=== PATIENT | female | born 1995 | race Caucasian/White ===

== ENCOUNTER 2018-08-03 13:33 | Outpatient (REF) | payer OTHER, SELFPAY ==
--- NOTE | 2018-08-03 13:00 | PAPFT_PTH ---
PATIENT: Chintan Ramirez LOC: [facility] U#:[id number] AGE/SX: 23/F ROOM: RE08/03/[address]: CATARINA Schneider : 1995 BED: DIS: 08/03/2018 SPEC #: [id number] RECD: 08/03/18 18:24 STATUS: ANITA REQ #: [id number] JESUS: 08/03/18 13:[address]: Nancy Macdonald DEPT: [facility] Cytology RECD BY: Alexus Jauregui ENTERED: 08/03/18 18:24 SP TYPE: PAPFT CAROLYN DR: Sandra Philip MD Tissues: 1 - CX/ENDOCX FOR PAP SMEARS Procedures: PAP THIN PREP/UVM Screening Comments: [id number]
== END 2018-08-03 13:53 ==
LOC: LBN 13:33
PROVIDERS: PCP Pediatrics; Visit Provider Nurse Practitioner Family
DX: Z12.4 Encounter for screening for malignant neoplasm of cervix (principal)
CPT/HCPCS: 88142

== ENCOUNTER 2019-02-15 11:18 | Outpatient (CLI) | payer OTHER, SELFPAY ==
--- NOTE | 2019-02-15 15:00 | DI.US_ITS ---
SYMPTOMS/DIAGNOSIS: RIGHT LOWER ABDOMINAL PAIN, INTENSE RIGHT-SIDED PELVIC PAIN X 5 DAYS, PAIN WITH COUGHING, ? OVARIAN CYST PELVIC ULTRASOUND: A transabdominal and transvaginal examination was carried out. The uterus measures 6.4 cm in length, 2.8 cm in height and 3.7 cm in width with an endometrial stripe thickness of 4.6 mm. The right ovary measures 3.9 x 3.3 x 4 cm and contains a complex cyst measuring 3.4 x 2.9 x 3.8 cm. There is surrounding free fluid. The left ovary measures 3.2 x 1.7 x 2.4 cm and contains a collapsing cyst measuring 1.8 x 1 x 1.2 cm. Note is made of a small quantity of cul-de-sac fluid. SUMMARY: Right paraovarian free fluid and a small quantity of free fluid in the cul-de-sac is identified. There is a 3.4 x 2.9 x 3.8 cm left ovarian mass, which would certainly be consistent with a hemorrhagic cyst. A follow-up ultrasound examination in six to eight weeks is suggested for further review.
== END 2019-02-15 11:38 ==
PROVIDERS: PCP Pediatrics; Visit Provider Nurse Practitioner Family
DX: R10.31 Right lower quadrant pain (principal); R10.2 Pelvic and perineal pain; N83.291 Other ovarian cyst, right side; N83.292 Other ovarian cyst, left side
CPT/HCPCS: 76830; 76856

== ENCOUNTER 2019-02-27 15:43 | Outpatient (CLI) | payer OTHER, SELFPAY ==
[2019-02-27 19:20] LABS: HCG Quant, Pregnancy 235 mIU/mL (1-3)
== END 2019-02-27 16:03 ==
PROVIDERS: PCP Pediatrics; Visit Provider Obstetrics & Gynecology
DX: Z34.91 Encounter for supervision of normal pregnancy, unspecified, first trimester (principal)
CPT/HCPCS: 36415; 84702

== ENCOUNTER 2019-03-01 12:03 | Outpatient (CLI) | payer OTHER, SELFPAY ==
[2019-03-01 21:24] LABS: HCG Quant, Pregnancy 495 mIU/mL (1-3)
== END 2019-03-01 12:23 ==
PROVIDERS: PCP Pediatrics; Visit Provider Obstetrics & Gynecology
DX: Z34.91 Encounter for supervision of normal pregnancy, unspecified, first trimester (principal)
CPT/HCPCS: 36415; 84702

== ENCOUNTER 2019-04-04 15:12 | Outpatient (CLI) | payer OTHER, SELFPAY ==
[2019-04-04 15:49] LABS: Abs Immature Grans 0.02 k/cumm (0.0-0.09); Absolute Eosinophil Count 0.06 k/cumm (0.0-0.7); Absolute Lymphocyte Count 2.11 k/cumm (1.2-3.4); Absolute Monocyte Count 0.84 k/cumm (0.11-0.7); Basophils % 0.3; Eosinophils % 0.5; HCT 38.1 % (36.0-46.0); Immature Grans % 0.2; Lymphocytes % 17.7; Mean Corp. HGB Concentration 34.1 g/dL (32.0-36.0); Mean Corpuscular Hemoglobin 30.9 pg (27.0-33.0); Mean Corpuscular Volume 90.5 fL (80-95); Neutrophils % 74.3; Platelet Count 225 x1000/uL (130-400); RBC 4.21 m/cumm (4.00-5.20); RBC Distribution Width 12.1 % (11.7-14.6); White Blood Cell Count 11.93 k/cumm (4.4-10.8)
[2019-04-04 15:59] LABS: Absolute Basophil Count 0.04 k/cumm (0.0-0.2); Absolute Neutrophil Count 8.86 k/cumm (1.2-6.7)
[2019-04-04 16:25] LABS: TSH (W/Ref FT4) 1.47 uIU/mL (0.36-3.74)
[2019-04-05 11:04] LABS: Hepatitis B Surface Ag Negative (NEGAT); Hepatitis C Ab w Rflx HCV PCR Negative (NEGAT)
[2019-04-05 11:10] LABS: Rubella IgG Ab (UVM) Positive; Syphilis Serology (RPR) Negative (Negative); Varicella IgG Antibody Positive
[2019-04-05 11:17] LABS: HIV-1/2 Ag & Ab Screen Negative (NEGAT)
== END 2019-04-04 15:32 ==
PROVIDERS: PCP Pediatrics; Visit Provider Advanced Practice Midwife
DX: Z34.91 Encounter for supervision of normal pregnancy, unspecified, first trimester (principal); Z11.59 Encounter for screening for other viral diseases; Z11.4 Encounter for screening for human immunodeficiency virus [HIV]; Z01.84 Encounter for antibody response examination
CPT/HCPCS: 36415; 80055; 86787; 86803; 86850; 86900; 86901; 87340; 87389; 84443; 86592; 86762

== ENCOUNTER 2019-04-04 15:21 | Outpatient (REF) | payer OTHER, SELFPAY ==
--- NOTE | 2019-04-04 14:50 | PAPFT_PTH ---
PATIENT: Chintan Ramirez LOC: [facility] U#:[id number] AGE/SX: 24/F ROOM: RE04/04/[address]: Marilee Villagran RN : 1995 BED: DIS: 04/04/2019 SPEC #: [id number] RECD: 04/04/19 17:32 STATUS: ANITA REKillian #: [id number] JESUS: 04/04/19 14:[address]: Marilee Villagran DEPT: [facility] Cytology RECD BY: Alexus Jauregui ENTERED: 04/04/19 17:32 SP TYPE: PAPFT OT DR: Sandra Philip MD Tissues: 1 - CX/ENDOCX FOR PAP SMEARS Procedures: PAP THIN PREP/UVM Screening Comments: [id number]
[2019-04-04 16:23] LABS: *AMPHETAMINES SCREEN URINE Negative (Negative); *BARBITURATES SCREEN URINE Negative (Negative); *BENZODIAZEPINES SCREEN URINE Negative (Negative); Cannabinoids THC POSITIVE (Negative); Cocaine Screen,Urine Negative (Negative); METHADONE URINE SCREEN Negative (Negative); OPIATES URINE SCREEN Negative (Negative)
[2019-04-04 16:30] LABS: Tricyclic Antidepressants Negative (Negative)
[2019-04-05 13:46] LABS: Chlamydia Result Negative; GC Result Negative; Specimen Description CERVIX
[2019-04-13 06:51] LABS: Buprenorphine Negative; Norbuprenorphine Negative
== END 2019-04-04 15:41 ==
LOC: LBN 15:21
PROVIDERS: PCP Pediatrics; Visit Provider Advanced Practice Midwife
DX: Z34.91 Encounter for supervision of normal pregnancy, unspecified, first trimester (principal); Z11.3 Encounter for screening for infections with a predominantly sexual mode of transmission; Z12.4 Encounter for screening for malignant neoplasm of cervix
CPT/HCPCS: 80307; 87491; 87591; 88142; 87086

== ENCOUNTER 2019-04-07 08:39 | Emergency (ER) | payer OTHER, SELFPAY ==
[2019-04-07 08:41] VITALS: BP 125/72; PULSE 88; RESP 16; TEMP 37; O2SAT 100
== END 2019-04-07 10:01 ==
PROVIDERS: PCP Pediatrics
DX: Z53.21 Procedure and treatment not carried out due to patient leaving prior to being seen by health care provider (principal)
CPT/HCPCS: 87880

== ENCOUNTER 2019-04-24 20:22 | Emergency (ER) | payer OTHER, SELFPAY ==
--- NOTE | 2019-04-24 20:28 | W.ED.GENAD ---
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 She describes it as a stabbing burning sensation. Worse when she lays backwards. Worse when she eats spicy foods. She notably had spicy buffalo chicken nachos yesterday and today this is seem to significantly worsen her symptoms. She does admit to a history of reflux and states that this does feel similar. Exam demonstrates minimal epigastric tenderness, and a small gallstone on bedside ultrasound. Limited portable bedside ultrasound does demonstrate evidence of gallbladder wall thickness less than 3 mm. No overt distention. Negative sonographic physical exam Ortega sign. Signs and symptoms are most concerning for reflux secondary to notable spicy foods. I did discuss with the patient CT imaging, labs, and GI cocktail and at this time through shared decision making process understanding the risks and benefits of limiting the work-up the patient would like to hold off on labs and imaging and just start with the GI cocktail. I do feel that this is reasonable given her current physical exam. HPI General Date/Time Provider Initiated Documentation: 04/24/19 20:25. HPI Narrative: This is a 24-year-old female with a past medical history of asthma who presents today for evaluation of epigastric pain. She states that she has a history of epigastric pain, usually associated with spicy foods. She is gotten it much over the past, however over the last 4 hours it is been notably worse. She states it comes and goes and is stabbing in nature. It radiates from the epigastric region up the sternum. Significantly worsened with laying down on her back. She denies any pleuritic pain, she denies any vomiting or significant diarrhea patient does take control and does have a Nexplanon device. Denies PE risk factors such as recent long car rides, immobilization, recent surgery, prior history of DVT or PE, family history of PE or DVT, morbid obesity, and smoking, hemoptysis, history of cancer. Patient denies any other complaints at this time. No other modifying factors. Related Data Home Medications Medication Instructions Recorded Confirmed fluticasone propionate [Flonase 1 spray NS BID #1 script 10/13/17 04/24/19 Allergy Relief] levalbuterol tartrate 45 2 puff INHALATION Q4H PRN #1 puff 08/11/18 04/24/19 mcg/actuation aerosol inhaler vitamin no.138-folic acid 1 tab PO DAILY 03/22/19 04/24/19 400 mcg-dha 25 mg chewable tablet Previous Rx's Medication Instructions Recorded fluticasone propionate [Flonase 1 spray NS BID #1 script 10/13/17 Allergy Relief] levalbuterol tartrate 45 2 puff INHALATION Q4H PRN #1 puff 08/11/18 mcg/actuation aerosol inhaler Allergies Allergy/AdvReac Type Severity Reaction Status Date / Time No Known Allergies Allergy Verified 04/04/19 13:42 General MADALNY: 4 Review of Systems Review of Systems All systems reviewed & are unremarkable except as noted in HPI and below PFSH Medical History Acne (Acute 05/31/12) ADHD (attention deficit hyperactivity disorder) (Resolved) Arthralgia (Resolved) Asthma, exercise induced (Acute 05/31/12) Contraception (Acute) Depressive disorder (Resolved) Eczema (Acute 07/19/14) Migraine with aura (Chronic 05/31/12) Positive GUY (antinuclear antibody) (Acute 02/24/16) Surgical History release of bowel obstructing celiac artery Family History Mother Lupus Social History Smoking/Tobacco Use Status: Former Tobacco Use Quit Date: 02/27/19 Alcohol Intake: former Details: d/c'd w/ knowledge of . Drug use: Current Sobriety Substance use type: marijuana Details: mj qd one hit q day. Seatbelt use: always Do you feel safe at home: Yes Do you feel safe in your relationship?: Yes Female Reproductive History Menstrual control method: progesterone injection History History 1 Para 0 Hx # Term Pregnancies 0 Multiple births 0 Hx # Pregnancies 0 Ectopic pregnancies 0 AB induced 0 Hx Number of Living Children 0 AB spontaneous 0 Exam Narrative Exam Narrative: 1.Const: Well-nourished, Well-developed, appearing stated age 2.Eyes: PERRL, no conjunctival injection, and symmetrical lids. 3.ENT: Atraumatic external nose and ears. Moist MM. Neck: Symmetric, trachea midline, No thyromegaly. 4.CVS: +S1/S2, No murmurs or gallops. Peripheral pulses 2+ and equal in all extremities. Brisk capillary refill in all extremities. 5.RESP: Unlabored respiratory effort. Clear to auscultation bilaterally. No wheezes rales or rhonchi 6.GI: Soft, Nontender/Nondistended, No hepatosplenomegaly. No guarding or rebound. Minimal epigastric discomfort. No pain at McBurney's point, negative Ortega sign and negative sonographic Ortega sign. Bedside limited ultrasound demonstrates gallbladder wall of 2.8 mm in diameter. Gallbladder is not overly distended. One small stone is present. No flank or CVA tenderness. No suprapubic tenderness. 7.MSK: Normocephalic/Atraumatic, Extremities w/o deformity or ttp No cyanosis or clubbing, Normal movement of all extremities 8.Skin: Warm, Dry. No rashes or lesions. 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 Sensation grossly intact, no focal neurologic deficits. 10.Psych: (AAO) x3. Appropriate mood and affect
[2019-04-24 20:30] VITALS: BP 125/73; PULSE 76; RESP 18; TEMP 36.8; O2SAT 99
--- NOTE | 2019-04-24 20:53 | ED.GENADUL_ITS ---
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 No heavy lifting and no sexual activity until cleared by obstetrics. Please follow-up with obstetrics. Call to arrange timely follow-up. Return to the ER for any worsening or new concerning symptoms. Referrals: Emily Rojas [[facility] NURSE BIRD SITTER] - Medical Decision Making 24-year-old female G1, P0 at 12 weeks here with vaginal bleeding that started tonight. Abdominal exam benign. Patient is not tachycardic, normotensive, hemodynamic with stable. Blood type as of 04/04/2019 is O+. 21:00 --I called and spoke with agile developer Emily at the request of patient who will come in immediately to perform speculum exam. Patient being moved to DEAD MAIL CHECKER exam capable bed in room. 21:34 --pelvic exam performed by agile developer, no bleeding, also closed, no products of conception. A bedside [id number] ultrasound was performed by [place] and shows a IUP with movement and heart rate. heart rate per nursing was 152-164. I spoke with the agile developerEmily, who recommends discharge with outpatient follow- up. She will order outpatient official ultrasound to be performed in follow-up. Results and plan discussed with the patient. Usual customary discharge instructions were provided. HPI General Mode of arrival: ambulatory . Date/Time Provider Initiated Documentation: 04/24/19 20:25 . Limitations to Documentation: no limitations . Information obtained by: patient and family . HPI Narrative: 24-year-old G1, P0 at 12 weeks here with vaginal bleeding. Bleeding started at 745 tonight. Bleeding is been heavy. She has used 2 pads. No associated abdominal cramping. Today's been normal with normal ultrasound done at 7 weeks. She does feel that she is still bleeding now. 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 MADALYN: 3 Review of Systems Review of Systems All systems reviewed & are unremarkable except as noted in HPI and below Constitutional Denies fever(s) and Denies weakness Gastrointestinal Denies abdominal pain and Denies cramping Genitourinary Reports as per HPI Neurologic Denies weakness PFSH Medical History Acne (Acute 05/31/12) ADHD (attention deficit hyperactivity disorder) (Resolved) Arthralgia (Resolved) Asthma, exercise induced (Acute 05/31/12) Contraception (Acute) Depressive disorder (Resolved) Eczema (Acute 07/19/14) Migraine with aura (Chronic 05/31/12) Positive GUY (antinuclear antibody) (Acute 02/24/16) Surgical History release of bowel obstructing celiac artery Family History Mother Lupus Social History Smoking/Tobacco Use Status: Former Tobacco Use Quit Date: 02/27/19 Alcohol Intake: former Details: d/c'd w/ knowledge of . Drug use: Current Sobriety Substance use type: marijuana Details: mj qd one hit q day. Seatbelt use: always Do you feel safe at home: Yes Do you feel safe in your relationship?: Yes Female Reproductive History Menstrual control method: progesterone injection History History 1 Para 0 Hx # Term Pregnancies 0 Multiple births 0 Hx # Pregnancies 0 Ectopic pregnancies 0 AB induced 0 Hx Number of Living Children 0 AB spontaneous 0 Exam Const General: cooperative and no acute distress HENMT Head: normocephalic Mouth: moist mucous membranes Eyes Conjunctivae: normal conjunctivae Sclera: normal sclerae Neck Neck: trachea midline and supple Resp Auscultation: clear to auscultation bilaterally, no rales, no rhonchi and no wheezes Cardio Jugular venous pressure: no JVD Rate: regular rate and not tachycardic Rhythm: regular rhythm GI Palpation: soft, not firm, no guarding, no masses, not rigid and nontender Skin General skin exam: no rashes or lesions noted Neuro General: alert, awake, oriented x3 and tone normal Extrem General: no edema Psych Appearance: grossly normal Mental Status: mental status grossly normal Course Vital Signs Temperature 36.8 C 04/24/19 20:30 Pulse 76 04/24/19 20:30 Respiratory Rate 18 04/24/19 20:30 Blood Pressure 125/73 04/24/19 20:30 Pulse Oximetry 99 04/24/19 20:30 Temperature 36.8 C 04/24/19 20:30 Temperature Source Tympanic 04/24/19 20:30 Pulse 76 04/24/19 20:30 Respiratory Rate 18 04/24/19 20:30 Respiratory Effort Non-Labored 04/24/19 20:39 Blood Pressure 125/73 04/24/19 20:30 Pulse Oximetry 99 04/24/19 20:30 Oxygen Delivery Method Room Air 04/24/19 20:30 Oxygen Flow Rate 0 04/24/19 20:30 Pain Level 0 04/24/19 20:39
[2019-04-24 21:43] VITALS: BP 125/73; PULSE 76; RESP 18; O2SAT 99
== END 2019-04-24 21:43 | disposition home or self-care (01) ==
PROVIDERS: Emergency Provider Student in an Organized Health Care Education/Training Program; PCP Pediatrics
DX: O20.0 Threatened abortion (principal); Z3A.12 12 weeks gestation of pregnancy
CPT/HCPCS: 99284

== ENCOUNTER 2019-04-25 12:22 | Outpatient (CLI) | payer OTHER, SELFPAY ==
--- NOTE | 2019-04-25 12:15 | DI.US_ITS ---
SYMPTOMS/DIAGNOSIS: PLACENTAL LOCATION, ? PREVIA, O20.9, HEMORRHAGE IN EARLY , Z3A.12, 12-WEEK GESTATION OB ULTRASOUND: Many abnormalities cannot be diagnosed. A normal exam does not exclude a congenital anomaly. HISTORY: hCG 495 on 03/01/19, heaving bleeding last night has since subsided Date of exam: 04/25/19 LMP: EDC by LMP: 11/03/2019 Previous study: 12+4 wks Range: 11+4 to 13+4 EDC by prior us: 11/03/2019 Findings: Prior surgery/: None BIOMETRY: PELVIC MEASUREMENTS: CRL: mm wks Uterus: 9.4 x 8.0 x 9.2 cm Yolk sac: mm wks Gest sac: mm wks Rt Ovary: 2.7 x 2.1 x 2.0 cm BPD: 21 mm 13+2 wks HC: 80 mm 13+3 wks Lt Ovary: 2.6 x 1.2 x 2.0 cm AC: 64 mm 13+1 wks FL: 9.4 mm 12+6 wks Comments: Placenta tip = 2.4-2.9 cm from cx Anterior placenta ? Complex cyst of right ovary measuring 1.2 x 0.9 x 1.6 cm Composite Age (US): 13+1 wks EDC by US: 10/30/2019 Heart Rate: 162 BPM Amniotic Fluid: Normal Movement noted: X Yes No Comments: OB ultrasound was performed utilizing first trimester protocol. biometry is consistent with gestational age of 13 weeks 1 day and EDC of 10/30/2019. There is a single viable intrauterine gestation with heart rate 162 bpm. Trophoblastic tissue is unremarkable. Presumed right ovarian corpus luteum cyst noted measuring about 12 mm in diameter.
[2019-04-25 13:14] LABS: HCT 37.7 % (36.0-46.0); HGB 12.6 g/dL (12.0-15.5); Mean Corp. HGB Concentration 33.4 g/dL (32.0-36.0); Mean Corpuscular Hemoglobin 30.9 pg (27.0-33.0); Mean Corpuscular Volume 92.4 fL (80-95); Mean Platelet Volume 10.9 fL (8.0-11.0); Platelet Count 248 x1000/uL (130-400); RBC 4.08 m/cumm (4.00-5.20); RBC Distribution Width 12.2 % (11.7-14.6)
== END 2019-04-25 12:42 ==
PROVIDERS: PCP Pediatrics; Visit Provider Advanced Practice Midwife
DX: O20.9 Hemorrhage in early pregnancy, unspecified (principal); Z3A.13 13 weeks gestation of pregnancy; N83.11 Corpus luteum cyst of right ovary
CPT/HCPCS: 36415; 85027; 76801

== ENCOUNTER 2019-05-30 01:07 | Outpatient (CLI) | payer OTHER, SELFPAY ==
--- NOTE | 2019-05-30 15:26 | DI.US_ITS ---
EXAM: US OB 2-3 TRIMESTER CLINICAL HISTORY: routine pnc Z34.90. TECHNIQUE: Ultrasound performed using standard protocol. COMPARISON: No exams were available for comparison FINDINGS: Please see the obstetrical ultrasound worksheet for the complete results of this examination.
== END 2019-05-30 01:27 ==
PROVIDERS: PCP Pediatrics; Visit Provider Advanced Practice Midwife
DX: Z34.92 Encounter for supervision of normal pregnancy, unspecified, second trimester (principal)
CPT/HCPCS: 76805

== ENCOUNTER 2019-05-31 17:16 | Outpatient (REF) | payer OTHER, SELFPAY | END 2019-05-31 17:36 | LOC: LBN 17:16 | PROVIDERS: PCP Pediatrics; Visit Provider Advanced Practice Midwife | DX: R10.9 Unspecified abdominal pain (principal) | CPT/HCPCS: 87086 ==

== ENCOUNTER 2019-06-28 16:20 | Outpatient (CLI) | payer OTHER, SELFPAY ==
[2019-07-02 14:16] LABS: AFP 69.5 ng/mL; Calculated age at EDD 24 years; Cigarette smoking status non-smoker; GA used in risk estimate Scan estimate; INHIBIN 270 pg/mL; IVF Pregnancy No; Initial or repeat testing Initial testing; Insulin dependent diabetes No; Maternal Weight 146 lbs; Number of Fetuses 1; Physician Phone Number 802-748-7300; Prev Down(T21)/Trisomy Pregnan No; Prev Pregnancy w/NTD No; RECOMMENDED FOLLOW UP None.; Results Summary Normal risk; hCG, TOTAL 35.2 IU/mL; hCG, TOTAL MoM 1.81 MoM; uE3 2.03 ng/mL; uE3 MoM 0.83 MoM
== END 2019-06-28 16:40 ==
PROVIDERS: PCP Pediatrics; Visit Provider Advanced Practice Midwife
DX: Z34.92 Encounter for supervision of normal pregnancy, unspecified, second trimester (principal); Z36.89 Encounter for other specified antenatal screening
CPT/HCPCS: 36415; 81511

== ENCOUNTER 2019-08-15 07:03 | Outpatient (CLI) | payer OTHER, SELFPAY ==
[2019-08-15 08:21] LABS: HCT 35.6 % (36.0-46.0); HGB 11.6 g/dL (12.0-15.5); Mean Corp. HGB Concentration 32.6 g/dL (32.0-36.0); Mean Corpuscular Hemoglobin 30.1 pg (27.0-33.0); Mean Corpuscular Volume 92.2 fL (80-95); Mean Platelet Volume 10.4 fL (8.0-11.0); Platelet Count 231 x1000/uL (130-400); RBC 3.86 m/cumm (4.00-5.20); RBC Distribution Width 11.7 % (11.7-14.6); White Blood Cell Count 8.14 k/cumm (4.4-10.8)
[2019-08-15 08:32] LABS: Glucose,1 Hr (Glucola) 103 mg/dL (80-140)
== END 2019-08-15 07:23 ==
PROVIDERS: PCP Pediatrics; Visit Provider Advanced Practice Midwife
DX: Z34.93 Encounter for supervision of normal pregnancy, unspecified, third trimester (principal)
CPT/HCPCS: 36415; 82950; 85027

== ENCOUNTER 2019-10-10 10:20 | Outpatient (REF) | payer OTHER, SELFPAY | END 2019-10-10 10:40 | LOC: LBN 10:20 | PROVIDERS: PCP Pediatrics; Visit Provider Advanced Practice Midwife | DX: Z34.93 Encounter for supervision of normal pregnancy, unspecified, third trimester (principal); Z36.85 Encounter for antenatal screening for Streptococcus B | CPT/HCPCS: 87081 ==

== ENCOUNTER 2019-10-10 16:35 | Outpatient (CLI) | payer OTHER, SELFPAY ==
[2019-10-10 16:59] LABS: HCT 35.2 % (36.0-46.0); HGB 11.4 g/dL (12.0-15.5); Mean Corp. HGB Concentration 32.4 g/dL (32.0-36.0); Mean Corpuscular Hemoglobin 29.2 pg (27.0-33.0); Mean Platelet Volume 10.9 fL (8.0-11.0); Platelet Count 273 x1000/uL (130-400); RBC 3.91 m/cumm (4.00-5.20); RBC Distribution Width 12.4 % (11.7-14.6); White Blood Cell Count 10.66 k/cumm (4.4-10.8)
== END 2019-10-10 16:55 ==
PROVIDERS: PCP Pediatrics; Visit Provider Advanced Practice Midwife
DX: Z34.93 Encounter for supervision of normal pregnancy, unspecified, third trimester (principal)
CPT/HCPCS: 36415; 85027; 85025

== ENCOUNTER 2019-10-10 21:20 | Outpatient (REF) | payer OTHER, SELFPAY ==
[2019-10-10 23:11] LABS: *AMPHETAMINES SCREEN URINE Negative (Negative); *BARBITURATES SCREEN URINE Negative (Negative); *BENZODIAZEPINES SCREEN URINE Negative (Negative); Cannabinoids THC Negative (Negative); Cocaine Screen,Urine Negative (Negative); METHADONE URINE SCREEN Negative (Negative); OPIATES URINE SCREEN Negative (Negative)
[2019-10-10 23:13] LABS: Tricyclic Antidepressants Negative (Negative)
[2019-10-18 10:09] LABS: Buprenorphine Negative; Norbuprenorphine Negative
== END 2019-10-10 21:40 ==
LOC: LBN 21:20
PROVIDERS: PCP Pediatrics; Visit Provider Advanced Practice Midwife
DX: Z34.93 Encounter for supervision of normal pregnancy, unspecified, third trimester (principal)
CPT/HCPCS: 80307

== ENCOUNTER 2019-10-17 19:24 | Outpatient (REF) | payer OTHER, SELFPAY | END 2019-10-17 19:44 | LOC: LBN 19:24 | PROVIDERS: PCP Advanced Practice Midwife; Visit Provider Advanced Practice Midwife | DX: N89.8 Other specified noninflammatory disorders of vagina (principal) | CPT/HCPCS: 87480; 87510; 87660 ==

== ENCOUNTER 2019-11-03 11:30 | Observation (INO) | payer OTHER, SELFPAY | END 2019-11-03 13:37 | disposition home or self-care (01) | PROVIDERS: Admitting Provider Advanced Practice Midwife; PCP Advanced Practice Midwife; Visit Provider Advanced Practice Midwife | DX: O47.1 False labor at or after 37 completed weeks of gestation (principal); Z3A.39 39 weeks gestation of pregnancy | CPT/HCPCS: 59025; G0378 ==

== ENCOUNTER 2019-11-06 18:35 | Inpatient (IN) | payer OTHER, MEDICAID, SELFPAY ==
[2019-11-06] MEDS: Lidocaine 1% Multi-Dose 20 ML VIAL (19:40)
[2019-11-06] MEDS: Oxytocin 10 UNITS/ML VIAL IM (19:50)
[2019-11-06] MEDS: Ibuprofen 600 MG TAB PO (21:14)
[2019-11-06] MEDS: Acetaminophen 325 MG TAB 650 MG PO (21:14)
[2019-11-06 21:56] LABS: HCT 36.7 % (36.0-46.0); HGB 12.1 g/dL (12.0-15.5); Mean Corpuscular Hemoglobin 29.3 pg (27.0-33.0); Mean Corpuscular Volume 88.9 fL (80-95); Mean Platelet Volume 11.1 fL (8.0-11.0); Platelet Count 271 x1000/uL (130-400); RBC 4.13 m/cumm (4.00-5.20); RBC Distribution Width 12.7 % (11.7-14.6); White Blood Cell Count 14.71 k/cumm (4.4-10.8)
[2019-11-07 07:36] LABS: HCT 36.6 % (36.0-46.0); Mean Corp. HGB Concentration 32.8 g/dL (32.0-36.0); Mean Corpuscular Hemoglobin 29.3 pg (27.0-33.0); Mean Corpuscular Volume 89.3 fL (80-95); Mean Platelet Volume 10.9 fL (8.0-11.0); Platelet Count 262 x1000/uL (130-400); RBC Distribution Width 12.8 % (11.7-14.6); White Blood Cell Count 11.57 k/cumm (4.4-10.8)
[2019-11-07] MEDS: Ibuprofen 600 MG TAB PO ×2 (07:49→22:18)
[2019-11-07] MEDS: Acetaminophen 325 MG TAB 650 MG PO ×3 (07:49→22:18)
[2019-11-07] MEDS: Hamamelis Leaf/Glycerin 100 EACH BOX PR (07:53)
[2019-11-07] MEDS: Butalbital/Acetaminophen/Caffeine 50/325/40 TAB PO ×2 (15:28→22:18)
[2019-11-08] MEDS: Ibuprofen 600 MG TAB PO (06:27)
== END 2019-11-08 12:00 | disposition home or self-care (01) | DRG 768 ==
PROVIDERS: Admitting Provider Advanced Practice Midwife; PCP Advanced Practice Midwife; Visit Provider Advanced Practice Midwife
DX: O62.3 Precipitate labor (principal); Z37.0 Single live birth; O70.0 First degree perineal laceration during delivery; O48.0 Post-term pregnancy; Z3A.40 40 weeks gestation of pregnancy
CPT/HCPCS: 36415; 85027; 86850; 86900; 86901; J2590; J3490

== ENCOUNTER 2019-11-08 12:16 | Outpatient (CLI) | payer OTHER, SELFPAY | END 2019-11-08 12:36 | PROVIDERS: PCP Advanced Practice Midwife; Visit Provider Advanced Practice Midwife | DX: Z39.1 Encounter for care and examination of lactating mother (principal) | CPT/HCPCS: E0602 ==

== ENCOUNTER 2020-04-02 18:06 | Outpatient (REF) | payer MEDICAID, SELFPAY ==
[2020-04-04 14:28] LABS: Chlamydia Result Negative (Negative); GC Result Negative (Negative)
== END 2020-04-02 18:26 ==
LOC: LBN 18:06
PROVIDERS: Visit Provider Nurse Practitioner Women's Health
DX: Z11.3 Encounter for screening for infections with a predominantly sexual mode of transmission (principal)
CPT/HCPCS: 87491; 87591

== ENCOUNTER → 2021-11-05 03:49 | Outpatient (CLI) | payer MEDICAID, SELFPAY ==
--- NOTE | 2021-11-05 06:30 | DI.US_ITS ---
Exam(s) US PELVIS TRANSVAGINAL EXAM: US PELVIS TRANSVAGINAL CLINICAL HISTORY: PAIN,? OVARIAN CYST,N83.209 TECHNIQUE: Transabdominal and transvaginal imaging was performed using standard protocol. COMPARISON: No exams were available for comparison FINDINGS: KIDNEYS: Kidneys are symmetric in size. No evidence of renal calculi. No evidence of hydronephrosis. No renal mass or cyst identified. UTERUS: Retroverted. 8.8 x 3.7 x 5.4 cm Endometrium: Less than 2 millimeters. IUD noted within the endometrium. Myometrium: Unremarkable. Cervix: Unremarkable. OVARIES: Right: Cyst or mass: 1.5 centimeter follicle. Left: Cyst or mass: 2.1 centimeter simple cyst versus dominant follicle.. DOPPLER: Color: Symmetric and uniform flow to both ovaries. No hyperemia. Duplex: Normal ovarian arterial waveforms visualized. CUL-DE-SAC: Free fluid: Minimal near the left ovary. IMPRESSION: 1. Normal-appearing retroverted uterus with IUD in place.. 2. Unremarkable bilateral ovaries. DATA REPOSITORY:
== END ==
PROVIDERS: PCP Nurse Practitioner; Visit Provider Nurse Practitioner
DX: R93.89 Abnormal findings on diagnostic imaging of other specified body structures (principal)
CPT/HCPCS: 76830; 76856

== ENCOUNTER 2023-11-09 16:41 | Outpatient (REF) | payer BC, SELFPAY ==
[2023-11-09 15:18] LABS: Abs Immature Grans 0.01 10^3/uL (0.0-0.06); Absolute Basophil Count 0.04 10^3/uL (0.0-0.2); Absolute Eosinophil Count 0.05 10^3/uL (0.0-0.7); Absolute Lymphocyte Count 1.42 10^3/uL (1.2-3.4); Absolute Monocyte Count 0.41 10^3/uL (0.1-0.8); Absolute Neutrophil Count 3.74 10^3/uL (1.2-6.7); Basophils % 0.7; Eosinophils % 0.9; HCT 42.8 % (36.0-46.0); HGB 14.3 g/dL (11.2-15.7); Immature Grans % 0.2; MCH 31.6 pg (27.0-33.0); MCHC 33.4 % (32.0-36.0); MCV 95 fL (80-95); MPV 11.6 fL (8.0-11.0); Monocytes % 7.2; Platelet Count 248 10^3/uL (130-400); RBC 4.53 10^6/uL (3.93-5.22); RDW 11.4 % (11.7-14.6); RDW-SD 39.3 fL; WBC 5.67 10^3/uL (4.4-10.8)
[2023-11-09 15:23] LABS: ESR 1 mm/hr (0-20)
[2023-11-09 16:07] LABS: ALT 17 U/L (14-59); AST 14 U/L (15-37); Albumin 4.2 g/dL (3.4-5.0); Alkaline Phosphatase 64 U/L (46-116); Anion Gap 9.9 mmol/L (3-11); BUN 15 mg/dL (7-18); CO2 26.1 mmol/L (21.0-32.0); CREATININE 0.7 mg/dL (0.55-1.02); Calcium 9.1 mg/dL (8.5-10.1); Chloride 104 mmol/L (98-107); Estimated GFR 120.74 (mL/min/1.73m2); Glucose 99 mg/dL (74-106); Potassium 4.3 mmol/L (3.5-5.1); Sodium 140 mmol/L (136-145); TSH (W/Ref FT4) 0.82 uIU/mL (0.36-3.74); Total Protein 7.4 g/dL (6.4-8.2)
[2023-11-09 16:08] LABS: C-Reactive Protein < 0.50 mg/dL (<or=0.5)
== END 2023-11-09 16:42 | disposition home or self-care (01) ==
LOC: LBN 16:41
PROVIDERS: PCP Nurse Practitioner Family; Referring Provider Nurse Practitioner Family; Visit Provider Nurse Practitioner Family
DX: R10.13 Epigastric pain (principal)
CPT/HCPCS: 80053; 85652; 84443; 85025; 86140

== ENCOUNTER 2024-05-21 17:16 | Emergency (ER) | payer BC, MEDICAID, SELFPAY ==
[2024-05-21 17:25] VITALS: BP 110/71; PULSE 68; RESP 12; TEMP 37; O2SAT 98
--- NOTE | 2024-05-21 22:37 | ED.GENADUL_ITS ---
Discharge Plan Disposition Patient Disposition: Home Condition: Stable Discharge Details Clinical Impression: Vaginal bleeding in Primary Care Provider: Alberto Estrada ED Provider: Alexus Srivastava Home Meds and New Rx's Prescriptions: Continued no.144-folic acid 400 mcg tablet,chewable 2 tab PO DAILY levalbuterol tartrate [Xopenex HFA] 45 mcg/actuation HFA aerosol inhaler 2 puff Inhalation Q4H PRN Qty: 1 6RF Discharge Instructions Instructions: Bleeding in Early (DC) Additional Instructions: Please follow-up at your scheduled appointment tomorrow, refer to enclose packet information Should you have increased bleeding, pain, or any new concerns arise please be reevaluated earlier Referrals: Alberto Estrada, FLAT CUTTER [Primary Care Provider] - Discharge Data Discharge Date/Time-TO BE ENTERED AT DEPARTURE: 05/21/24 18:41 HPI General Date/Time Provider Initiated Documentation: 05/21/24 17:28 . HPI Narrative: This 29-year-old female presents with vaginal bleeding that started abruptly after feeling a popping sensation while she was driving. She states that there was a small lea of blood. She noticed some brown blood in her underwear. She states that the pain is since resolved and she is no longer bleeding. She is approximately 11 weeks 2 para 1. States she had a similar episode with her last . Denies fever chills, chest pain or shortness of breath, or any urinary symptoms. 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 Patient declines additional workup at this time, she is O+ infant blood type. Ultrasound showed intrauterine several days prior to arrival. Patient would like to be reassessed tomorrow, she has an appointment tomorrow with labs and ultrasound. She is encouraged to present again should her bleeding recurs or should she develop any pain or fever or chills. Return precautions reviewed and patient expressed understanding, alert, oriented, of decisional capacity. Course Vital Signs Vital signs: Vital Signs Temperature 37.0 C 05/21/24 17:25 Pulse 68 05/21/24 17:25 Respiratory Rate 12 05/21/24 17:25 Blood Pressure 110/71 05/21/24 17:25 Pulse Oximetry 98 05/21/24 17:25 Temperature 37.0 C 05/21/24 17:25 Temperature Source Oral 05/21/24 17:25 Pulse 68 05/21/24 17:25 Respiratory Rate 12 05/21/24 17:25 Respiratory Effort Normal 05/21/24 17:29 Blood Pressure 110/71 05/21/24 17:25 Pulse Oximetry 98 05/21/24 17:25 Oxygen Delivery Method Room Air 05/21/24 17:25 Oxygen Flow Rate 0 05/21/24 17:25 Pain Level 0 05/21/24 18:41 Lab/Test Results Lab/Test Results: Laboratory Tests Range/Units 05/21/24 05/21/24 17:43 17:44 WBC Cancelled RBC Cancelled Hgb Cancelled Hct Cancelled MCV Cancelled MCH Cancelled MCHC Cancelled RDW Cancelled Plt Count Cancelled MPV Cancelled Immature Gran % Cancelled Neutrophils % Cancelled Band Neutrophils % Cancelled Lymphocytes % Cancelled Atypical Lymphs % Cancelled Monocytes % Cancelled Eosinophils % Cancelled Basophils % Cancelled Metamyelocytes % Cancelled Myelocytes % Cancelled Promyelocytes % Cancelled Other Cells % Cancelled Nucleated RBC % Cancelled Absolute Neutrophils Cancelled Absolute Lymphocytes Cancelled Absolute Monocytes Cancelled Absolute Eosinophils Cancelled Absolute Basophils Cancelled RBC Morphology Cancelled Polychromasia Cancelled Hypochromasia Cancelled Poikilocytosis Cancelled Basophilic Stippling Cancelled Anisocytosis Cancelled Microcytosis Cancelled Macrocytosis Cancelled Spherocytes Cancelled Tear Drop Cells Cancelled Ovalocytes Cancelled Stomatocytes Cancelled Conroy-Brimley Bodies Cancelled Juan Carlos Cells/Echinocytes Cancelled Acanthocytes (Spur) Cancelled Schistocytes Cancelled Sodium Cancelled Potassium Cancelled Chloride Cancelled Carbon Dioxide Cancelled Anion Gap Cancelled BUN Cancelled Creatinine Cancelled Est GFR (CKD-EPI 2020) Cancelled Glucose Cancelled Calcium Cancelled Total Bilirubin Cancelled AST Cancelled ALT Cancelled Alkaline Phosphatase Cancelled Total Protein Cancelled Albumin Cancelled Serum HCG, Qual Cancelled ABO/Rh Cancelled Medical Decision Making 29-year-old female presenting with report of vaginal bleeding which has since resolved. Quality:SDOH Health Related Social Needs: No Data to Display PFSH All Active Problems (Updated 05/21/24 @ 18:38 by FLY Peterson) Vaginal bleeding in (Acute) Vaginal bleeding affecting early (Acute) (Acute) Ovarian cyst (Acute) Anxiety (Chronic) Marijuana smoker (Acute) Migraine with aura (Chronic 05/31/12) Eczema (Acute 07/19/14) Asthma, exercise induced (Acute 05/31/12) Acne (Acute 05/31/12) Medical History (Updated 05/21/24 @ 18:38 by FLY Peterson) Otalgia Epigastric pain Nausea Positive GUY (antinuclear antibody) (02/24/16) screening labs for lupus negative Depressive disorder Arthralgia ADHD (attention deficit hyperactivity disorder) took meds only while in school & college Surgical History release of bowel obstructing celiac artery 05/19 Family History Mother Lupus Social History Smoking risk assessment performed?: No Alcohol Intake: former Details: d/c'd w/ knowledge of . Drug use: Current Sobriety Substance use type: marijuana Details: mj qd one hit q day. Housing: house Seatbelt use: always Do you feel safe at home: Yes Do you feel safe in your relationship?: Yes Female Reproductive History Menstrual control method: progesterone injection History History 1 Para 1 Hx # Term Pregnancies 1 Multiple births 0 Hx # Pregnancies 0 Ectopic pregnancies 0 AB induced 0 Hx Number of Living Children 1 AB spontaneous 0 Past Pregnancies Del. Date GA/Weeks # Preg Succ Route Wgt Sex Labor Lgth Anesth esia Location Prov Complic 11/06/19 40 No vaginal 3260.195 g Female 3rd stage wa s minutes. Patient delivered ~ min. after arrival Nagi Miranda CNM
== END 2024-05-21 18:41 | disposition home or self-care (01) ==
PROVIDERS: Emergency Provider Physician Assistant; PCP Nurse Practitioner Family
DX: O46.91 Antepartum hemorrhage, unspecified, first trimester (principal)
CPT/HCPCS: 80053; 86900; 86901; 99284; 84703; 85025; 99283

== ENCOUNTER 2024-05-22 02:03 | Outpatient (CLI) | payer BC, MEDICAID, SELFPAY ==
[2024-05-22 14:51] LABS: Panorama Kit Sent via Fed Ex
[2024-05-22 15:06] LABS: Abs Immature Grans 0.03 10^3/uL (0.0-0.06); Absolute Basophil Count 0.03 10^3/uL (0.0-0.2); Absolute Eosinophil Count 0.05 10^3/uL (0.0-0.7); Absolute Lymphocyte Count 1.71 10^3/uL (1.2-3.4); Absolute Monocyte Count 0.56 10^3/uL (0.1-0.8); Absolute Neutrophil Count 6.35 10^3/uL (1.2-6.7); Basophils % 0.3 %; Eosinophils % 0.6 %; HCT 39.4 % (36.0-46.0); HGB 12.9 g/dL (11.2-15.7); Immature Grans % 0.3 %; Lymphocytes % 19.6 %; MCH 31.2 pg (27.0-33.0); MCHC 32.7 % (32.0-36.0); MCV 95 fL (80-95); MPV 10.7 fL (8.0-11.0); Monocytes % 6.4 %; Neutrophils % 72.8 %; Platelet Count 246 10^3/uL (130-400); RBC 4.14 10^6/uL (3.93-5.22); RDW 11.1 % (11.7-14.6); RDW-SD 38.8 fL; WBC 8.73 10^3/uL (4.4-10.8)
[2024-05-22 22:15] LABS: Lab Add On Test DONE
[2024-05-23 09:01] LABS: Hepatitis B Surface Ag Negative (Negative)
[2024-05-23 09:25] LABS: HIV-1/2 Ag & Ab Screen Negative (Negative)
[2024-05-23 09:43] LABS: Hepatitis C Ab w Rflx HCV PCR Negative (Negative)
[2024-05-23 11:08] LABS: Varicella IgG Antibody Positive (See Note)
[2024-05-23 11:11] LABS: Rubella IgG Ab (UVM) Positive (See Note)
[2024-05-23 14:10] LABS: ANA Interpretation Negative (Negative)
[2024-05-24 19:59] LABS: Syphilis IgG w/Reflex Nonreactive (Nonreactive)
[2024-06-05 14:28] LABS: Result Summary NEGATIVE; Specimen WB Whole Blood
== END 2024-05-22 02:04 | disposition home or self-care (01) ==
LOC: LBO 02:07
PROVIDERS: PCP Nurse Practitioner Family; Visit Provider Advanced Practice Midwife
DX: Z34.91 Encounter for supervision of normal pregnancy, unspecified, first trimester (principal); Z3A.01 Less than 8 weeks gestation of pregnancy; R76.8 Other specified abnormal immunological findings in serum
CPT/HCPCS: 36415; 81220; 81222; 86787; 86803; 86850; 86900; 86901; 87340; 87389; 85025; 86038; 86762; 86780

== ENCOUNTER 2024-05-22 14:42 | Outpatient (REF) | payer BC, MEDICAID, SELFPAY ==
--- NOTE | 2024-05-22 14:00 | PAPFT_PTH ---
PATIENT: Chintan Ramirez LOC: [facility] U#:[id number] AGE/SX: 29/F ROOM: RE05/22/[address]: Wendy Miranda : 1995 BED: DIS: 05/22/2024 SPEC #: [id number] RECD: 05/22/24 18:16 STATUS: ANITA REQ #: [id number] JESUS: 05/22/24 14:[address]: Wendy Miranda DEPT: [facility] Cytology RECD BY: Alexus Jauregui ENTERED: 05/22/24 18:17 SP TYPE: PAPFT OTHR DR: Alberto Parikh DNP Tissues: 1 - CX/ENDOCX FOR PAP SMEARS Procedures: PAP THIN PREP/UVM Screening Comments: [id number] (CHLAMYDIA/GC)
[2024-05-22 17:08] LABS: *AMPHETAMINES SCREEN URINE Negative (Negative); *BARBITURATES SCREEN URINE Negative (Negative); *BENZODIAZEPINES SCREEN URINE Negative (Negative); Cannabinoids THC Positive (Negative); Cocaine Screen,Urine Negative (Negative); METHADONE URINE SCREEN Negative (Negative); OPIATES URINE SCREEN Negative (Negative)
[2024-05-22 17:09] LABS: Tricyclic Antidepressants Negative (Negative)
[2024-05-23 12:02] LABS: Fentanyl Scr w/Rfx Confirm Negative ng/mL (<1)
[2024-05-23 13:11] LABS: Chlamydia Result Negative (Negative); GC Result Negative (Negative)
[2024-05-27 12:34] LABS: Buprenorphine Negative ng/mL (Cutoff: 5.0); Norbuprenorphine Negative ng/mL (Cutoff: 2.5)
== END 2024-05-22 14:43 | disposition home or self-care (01) ==
LOC: LBN 14:42
PROVIDERS: PCP Nurse Practitioner Family; Visit Provider Advanced Practice Midwife
DX: F12.90 Cannabis use, unspecified, uncomplicated (principal); Z34.91 Encounter for supervision of normal pregnancy, unspecified, first trimester
CPT/HCPCS: 80307; 80348; 87491; 87591; 88142; 87086

== ENCOUNTER 2024-07-04 01:35 | Outpatient (CLI) | payer MEDICAID, SELFPAY ==
[2024-07-06 11:51] LABS: AFP 42.2 ng/mL; Calculated age at EDD 29 years; Cigarette smoking status non-Smoker; GA used in risk estimate Dates estimate; IVF Pregnancy No; Initial or repeat testing Initial testing; Insulin dependent diabetes No; Maternal Weight 132 lbs; Number of Fetuses 1; Prev Pregnancy w/NTD No; RECOMMENDED FOLLOW UP None.; Results Summary Normal risk
== END 2024-07-04 01:36 | disposition home or self-care (01) ==
LOC: LBO 01:35
PROVIDERS: Advanced Practice Midwife; PCP Nurse Practitioner Family; Visit Provider Advanced Practice Midwife
DX: Z34.91 Encounter for supervision of normal pregnancy, unspecified, first trimester (principal)
CPT/HCPCS: 36415; 82105

== ENCOUNTER 2024-07-18 01:21 | Outpatient (CLI) | payer MEDICAID, SELFPAY ==
--- NOTE | 2024-07-18 07:30 | DI.US_ITS ---
Exam(s) US OB 2-3 TRIMESTER EXAM: US OB 2-3 TRIMESTER CLINICAL HISTORY: ,[id number]. TECHNIQUE: Transabdominal obstetrical ultrasound performed. COMPARISON: US US OB 1ST TRIMESTER from 05/22/2024 FINDINGS: Number of fetuses: 1 position: VARIED heart rate: 132bpm Placental location: ANTERIOR. No evidence of previa. BIOMETRIC DATA: BPD: 4.53cm, 19weeks 5days HC: 17.09cm, 19weeks 5days AC: 13.99cm, 19weeks 3days FL: 2.87cm, 18weeks 6days Cisterna magna: 5.9mm Cerebellum: 1.62cm Lateral ventricle: EFW: 278.74g, 0.63lb, 48.2% Composite Age: 19weeks 3days FELA: 12/09/2024 Heart Rate: 132bpm Amniotic fluid : Amount of fluid is within normal limits. ANATOMICAL SURVEY: Four-chambered heart: Unremarkable. LVOT: Unremarkable. RVOT: Unremarkable. Left-sided stomach: Unremarkable. urinary bladder: Unremarkable. Bilateral kidneys: Unremarkable. Three-vessel cord: Unremarkable. Cord insertion: Unremarkable. Posterior fossa:Unremarkable. ventricles: Unremarkable. nose: Unremarkable. lips: Unremarkable. palate: Unremarkable. spine: Unremarkable. Two arms and two legs: Unremarkable. IMPRESSION: 1. Single live intrauterine gestation composite age 19 weeks 3 day. 2. Normal anatomic survey. DATA REPOSITORY:
== END 2024-07-18 01:41 ==
LOC: DI 01:22
PROVIDERS: PCP Nurse Practitioner Family; Visit Provider Advanced Practice Midwife
DX: Z34.82 Encounter for supervision of other normal pregnancy, second trimester (principal); Z3A.20 20 weeks gestation of pregnancy
CPT/HCPCS: 76805

== ENCOUNTER 2024-09-10 04:04 | Outpatient (CLI) | payer MEDICAID, SELFPAY ==
[2024-09-10 16:11] LABS: HCT 34.5 % (36.0-46.0); HGB 11.4 g/dL (11.2-15.7); MCH 30.9 pg (27.0-33.0); MCV 94 fL (80-95); Platelet Count 235 10^3/uL (130-400); RBC 3.69 10^6/uL (3.93-5.22); RDW 11.6 % (11.7-14.6); WBC 10.16 10^3/uL (4.4-10.8)
[2024-09-10 16:20] LABS: Glucose,1 Hr (Glucola) 77 mg/dL (80-140)
== END 2024-09-10 04:05 | disposition home or self-care (01) ==
LOC: LBO 04:05
PROVIDERS: PCP Nurse Practitioner Family; Visit Provider Advanced Practice Midwife
DX: Z34.92 Encounter for supervision of normal pregnancy, unspecified, second trimester (principal)
CPT/HCPCS: 36415; 82950; 85027

== ENCOUNTER 2024-09-10 15:41 | Outpatient (REF) | payer MEDICAID, SELFPAY ==
[2024-09-10 18:19] LABS: *AMPHETAMINES SCREEN URINE Negative (Negative); *BARBITURATES SCREEN URINE Negative (Negative); *BENZODIAZEPINES SCREEN URINE Negative (Negative); Cannabinoids THC Positive (Negative); Cocaine Screen,Urine Negative (Negative); METHADONE URINE SCREEN Negative (Negative); OPIATES URINE SCREEN Negative (Negative)
[2024-09-10 18:20] LABS: Tricyclic Antidepressants Negative (Negative)
[2024-09-12 11:06] LABS: Fentanyl Scr w/Rfx Confirm Negative ng/mL (<1)
[2024-09-15 12:41] LABS: Buprenorphine Negative ng/mL (Cutoff: 5.0); Norbuprenorphine Negative ng/mL (Cutoff: 2.5)
== END 2024-09-10 15:42 | disposition home or self-care (01) ==
LOC: LBN 15:41
PROVIDERS: PCP Nurse Practitioner Family; Visit Provider Advanced Practice Midwife
DX: Z34.92 Encounter for supervision of normal pregnancy, unspecified, second trimester (principal); F12.90 Cannabis use, unspecified, uncomplicated
CPT/HCPCS: 80307; 80348

== ENCOUNTER 2024-11-12 13:31 | Outpatient (REF) | payer MEDICAID, SELFPAY | END 2024-11-12 13:32 | disposition home or self-care (01) | LOC: LBN 13:31 | PROVIDERS: PCP Nurse Practitioner Family; Visit Provider Advanced Practice Midwife | DX: Z34.93 Encounter for supervision of normal pregnancy, unspecified, third trimester (principal); Z3A.35 35 weeks gestation of pregnancy | CPT/HCPCS: 87081 ==

== ENCOUNTER 2024-11-20 16:59 | Inpatient (IN) | payer MEDICAID, SELFPAY ==
[2024-11-20] VITALS (8 sets, daily range): BP systolic 108–112; BP diastolic 60–67; PULSE 64–109; RESP 18–22; TEMP 36–37.1
--- NOTE | 2024-11-20 17:00 | W.PM.OBHPL1 ---
Date of service: 11/20/24 Time of Service: 17:00 Assessment and Plan Assessment and plan (1) Spontaneous onset of labor: Status: Acute Assessment and plan: Admit to Center and routine admission labs. Comfort measures. Anticipate . OB-HPI Labor/Delivery History of Present Illness Reason for Visit: labor Chief Complaint: Uterine Contractions. FELA Calculator Estimated Delivery Date Method Current WG Current Estimate 12/11/24 LMP (Certain) 37w 0d Comments: Chintan went home and contractions became stronger and she returns for labor evaluation History of Present Expected Delivery Route/Plan - CNM FOB- Ben Dunham (2nd child together) BB yes to circ Unmedicated except for nitrous GBS neg Labor support with Ben and her Mom, Alisha if Ben is unreachable at work. Specific Issues/Plan 1. Serum genetic testing,cfDNA low risk male, CF screen negative, desires AFP- low risk 2. History marijuana use; 5P+, initial UDS THC+, 28 wk UDS THC+, POSC with Anika Mayen 10/29/24 3. History of depression and ADHD, stopped medications with but has buspirone PRN 4. first trimester bleeding - US at 11 weeks with thin subchorionic bleed. 5. History of precipitous delivery 6. Varicose veins on left thigh, discussed warning sx for thrombophlebitis 7. Left sciatic nerve pain, also round ligament pain, to see chiropractor [facility] All Active Problems (Updated 11/20/24 @ 17:03 by Wendy Miranda CNM) Spontaneous onset of labor (Acute) (Acute) Ovarian cyst (Acute) Anxiety (Chronic) Marijuana smoker (Acute) Migraine with aura (Chronic 05/31/12) Eczema (Acute 07/19/14) Asthma, exercise induced (Acute 05/31/12) Acne (Acute 05/31/12) Medical History (Updated 11/20/24 @ 17:03 by Wendy Miranda CNM) Vaginal bleeding affecting early Otalgia Epigastric pain Nausea Positive GUY (antinuclear antibody) (02/24/16) screening labs for lupus negative Depressive disorder Arthralgia ADHD (attention deficit hyperactivity disorder) took meds only while in school & college Surgical History release of bowel obstructing celiac artery 05/19 Family History (Updated 05/22/24 @ 13:54 by Wendy Miranda CNM) Mother Lupus Depression Anxiety Brother Anxiety Social History Smoking risk assessment performed?: No Alcohol Intake: former Details: d/c'd w/ knowledge of . Drug use: Current Sobriety Substance use type: marijuana Details: mj qd one hit q day. Housing: house Seatbelt use: always Do you feel safe at home: Yes Do you feel safe in your relationship?: Yes Female Reproductive History Menstrual control method: progesterone injection History History 2 Para 1 Hx # Term Pregnancies 1 Multiple births 0 Hx # Pregnancies 0 Ectopic pregnancies 0 AB induced 0 Hx Number of Living Children 1 AB spontaneous 0 Past Pregnancies Del. Date GA/Weeks # Preg Succ Route Wgt Sex Labor Lgth Anesthesia Location Prov Complic 11/06/19 40 No Yes vaginal 7 lb 3 oz Female 3rd stage was minutes. Patient delivered 20 min. after arrival Nagi Miranda CNM Delivery Date: 11/06/19 Last Updated by: Wendy Miranda CNM [facility] Meds Allergies and Home Medications Allergies Allergy/AdvReac Type Severity Reaction Status Date / Time No Known Allergies Allergy Verified 11/19/24 11:40 Home Medications ?Medication ?Instructions ?Recorded ?Confirmed ?Type levalbuterol tartrate 45 2 puff inhalation Q4H PRN #1 puff 08/11/18 11/12/24 Rx mcg/actuation aerosol inhaler (Xopenex HFA) vits no.126-ferrous fum 1 tab PO DAILY 05/22/24 11/12/24 History 28 mg iron-folic acid 800 mcg tablet (Classic ) doxylamine succinate 25 mg tablet 25 mg PO QHS PRN sleep #14 tabs 09/13/24 11/12/24 Rx (Unisom (doxylamine)) breast pump #1 ea 10/15/24 10/15/24 Rx pantoprazole 40 mg tablet,delayed 40 mg PO DAILY #30 tabs 10/30/24 11/12/24 Rx release (Protonix) ondansetron HCl 8 mg tablet 8 mg PO Q8H PRN nausea and 11/12/24 11/12/24 Rx vomiting 14 days #20 tabs Exam Physical Exam Vital signs: Pulse BP 89 108/62 11/20/24 16:51 11/20/24 16:51 Vital Signs Reviewed: Yes Constitutional Constitutional: no acute distress Detailed Labor and Delivery Exam Dilation: 6 Effacement (%): 100 station: +1 Cervix position: posterior Consistency: soft Oh Score: Cervical Points Exam 0 1 2 3 Dilation Closed 1-2cm 3-4 cm 5-6cm Effacement 0-30% 40-50% 60-70% 80% Consistency Firm Medium Soft Station -3 -2 -1,0 +1,+2 Position Posterior Mid Anterior Amniotic Membrane Status: Intact Monitor Mode: External Contraction Frequency(min): every 4 min Contraction Duration(sec): 60 Contraction Intensity: Moderate/Strong Fetus A Heart Rate Baseline: 140 Monitor Accelerations: 15 X 15 Monitor Decelerations: None Variability: Moderate (6-25 BPM) Presentation: Cephalic Categories: Category I HEENT Exam HEENT Exam: Normal Respiratory Exam Respiratory Exam: Normal Cardiovascular Exam Cardiovascular Exam: Normal Abdominal Exam Abdominal Exam: Normal Exam Exam: Normal Extremities Exam Extremities Exam: Normal Skin Exam Skin Exam: Normal Psychiatric Exam Psychiatric Exam: Normal Risk Assessment Risk for Shoulder Dystocia Historical/Initial OB: NEGATIVE FOR: Pelvic Abnormality, Pre- BMI>30, Previous Shoulder Dystocia or Previous Macrosomia 36 Weeks: POSITIVE FOR: Current Gestational DM; NEGATIVE FOR: EFW>4500gms or Maternal Weight Gain>40lbs 40 Weeks: NEGATIVE FOR: EFW> 4500 gms, Maternal Weight Gain >40lb or Post Dates Increased Risk?: No Risk for Pre-Eclampsia Daily Dose ASA Indicated: No Date Initiated/Initials: 05/22/24 km Yes, if one or more: NEGATIVE FOR: Hx Pre-E/Gest HTN, Chronic HTN, Multiple Gestation, Pre-gestational DM, Renal Disease, Systemic Lupus or APA Syndrome Yes, if 2 or more: NEGATIVE FOR: Nulliparity, Age>= 35 yrs, >10yr btwn pregnancies, BMI>30, ethinicty, Mother/Sister w/ Pre-E or Previous IUGR Risk for Post- Hemorrhage Initial: NEGATIVE FOR: Multiple Gestation, Previous PPH, Known Clotting Deficiency, Grand Multiparity or Anticoagulation 36 Weeks: NEGATIVE FOR: Anemia, hgb<10, Low platelets(thrombocytopenia), Gestational HTN or Pre-E, Polyhydraminios or EFW>4500gms 40 Weeks: NEGATIVE FOR: Anemia, hgb<10, Low platelets (thrombocytopenia), Gestation HTN or Pre-E, Polyhydraminios or EFW>4500gms At Risk?: No Risks Reviewed Risks Reviewed Upon Admission: No
[2024-11-20 17:26] LABS: HCT 34.8 % (36.0-46.0); HGB 11.6 g/dL (11.2-15.7); MCH 30.4 pg (27.0-33.0); MCHC 33.3 % (32.0-36.0); MCV 91 fL (80-95); MPV 10.3 fL (8.0-11.0); Platelet Count 261 10^3/uL (130-400); RBC 3.81 10^6/uL (3.93-5.22); RDW 11.9 % (11.7-14.6); RDW-SD 39.8 fL; WBC 11.86 10^3/uL (4.4-10.8)
--- NOTE | 2024-11-20 18:40 | W.OBNST ---
Date of service: 11/20/24 Time of Service: 18:40 NST Evaluation Reason for NST Reasons for Nonstress Test: OTHER, SEE COMMENT Reason for NST Other: Rule out labor Gestational Age Gestational Age in Weeks and Days: 37 Weeks and 0Days Test and Monitor Explained Test/Monitor Explained: Test Explained, Monitor Explained and Patient Verbalized Understanding Vital Signs Blood Pressure: 108/62 Pulse: 89 Temperature: 97.8 F NST Information Date on Monitor: 11/20/24 Time on Monitor: 16:48 Date off Monitor: 11/20/24 Time off Monitor: 17:24 Total Time on Monitor: 36 NST Interventions: PO Hydration Contraction Frequency: 2-5 NST Evaluation Patient States Movement: Present FHR Baseline: 140 Variability: Moderate 6-25 bpm Accelerations: 15x15 Decelerations: None NST Results: Reactive Note Ultrasound Done: N/A. NST Note Note: Talor came in with regular contractions. 6 cms/100%/+1. Admitted in active labor. NST Reviewed and Verified by: Wendy Miranda
[2024-11-21] VITALS (15 sets, daily range): BP systolic 102–118; BP diastolic 54–70; PULSE 57–86; RESP 16–18; TEMP 36.3–37.1; O2SAT 97
--- NOTE | 2024-11-21 00:33 | W.PM.OBNL1 ---
Date of service: 11/21/24 Time of Service: 00:33 Assessment and Plan Assessment and plan (1) Spontaneous onset of labor: Status: Acute Assessment and plan: Will allow her to rest and reassess when she awakes. Objective Abnormal lab results 11/20/24 Range/Units 17:19 WBC 11.86 H (4.4-10.8) 10^3/uL RBC 3.81 L (3.93-5.22) 10^6/uL Hct 34.8 L (36.0-46.0) % Temp Pulse Resp BP 96.8 F L 109 H 22 112/65 11/20/24 22:58 11/20/24 22:58 11/20/24 22:58 11/20/24 22:58 Laboratory Results WBC 11.86 10^3/uL (4.4-10.8) H 11/20/24 17:19 RBC 3.81 10^6/uL (3.93-5.22) L 11/20/24 17:19 Hgb 11.6 g/dL (11.2-15.7) 11/20/24 17:19 Hct 34.8 % (36.0-46.0) L 11/20/24 17:19 MCV 91 fL (80-95) 11/20/24 17:19 MCH 30.4 pg (27.0-33.0) 11/20/24 17:19 MCHC 33.3 % (32.0-36.0) 11/20/24 17:19 RDW 11.9 % (11.7-14.6) 11/20/24 17:19 Plt Count 261 10^3/uL (130-400) 11/20/24 17:19 MPV 10.3 fL (8.0-11.0) 11/20/24 17:19 ABO/Rh O Positive 11/20/24 17:19 Antibody Screen NEGATIVE 11/20/24 17:19 Subjective Patient Reports: No new Complaints Interval history since last seen: Chintan took a shower for comfort and has been sleeping. She vomited earlier and had diarrhea. Results Hemoglobin/Hematocrit: Hgb 11.6 g/dL (11.2-15.7) 11/20/24 17:19 Hct 34.8 % (36.0-46.0) L 11/20/24 17:19 Abnormal Lab Findings: Abnormal Labs 11/20/24 17:19 WBC 11.86 H RBC 3.81 L Hct 34.8 L
[2024-11-21] MEDS: Ondansetron 4 MG/2 ML VIAL IVP ×2 (03:00→07:35)
[2024-11-21] MEDS: Lactated Ringers 500 ML IV ×2 (03:05→08:15)
[2024-11-21] MEDS: Normal Saline Flush 10 ML SYR IVP (03:07)
--- NOTE | 2024-11-21 03:33 | W.PM.OBNL1 ---
Date of service: 11/21/24 Time of Service: 03:33 Pelvic Exam Comments: pelvic exam deferred Contractions Monitor Mode: Palpation Contraction Frequency(min): irregular Contraction Duration(sec): 60 Intensity: Mild/Moderate Fetus A Monitor: Doppler Heart Rate Baseline: 145 Assessment and Plan Assessment and plan (1) Diarrhea: Status: Acute Assessment and plan: loperamide 4 mg PO PRN ordered. (2) Nausea & vomiting: Status: Acute Assessment and plan: IV started LR. 500 cc bolus and zofran 4 mg given. rest encouraged. Will continue to assess. Objective Abnormal lab results 11/20/24 Range/Units 17:19 WBC 11.86 H (4.4-10.8) 10^3/uL RBC 3.81 L (3.93-5.22) 10^6/uL Hct 34.8 L (36.0-46.0) % Temp Pulse Resp BP 97.3 F L 71 18 112/59 L 11/21/24 03:10 11/21/24 03:10 11/21/24 03:10 11/21/24 03:10 Laboratory Results WBC 11.86 10^3/uL (4.4-10.8) H 11/20/24 17:19 RBC 3.81 10^6/uL (3.93-5.22) L 11/20/24 17:19 Hgb 11.6 g/dL (11.2-15.7) 11/20/24 17:19 Hct 34.8 % (36.0-46.0) L 11/20/24 17:19 MCV 91 fL (80-95) 11/20/24 17:19 MCH 30.4 pg (27.0-33.0) 11/20/24 17:19 MCHC 33.3 % (32.0-36.0) 11/20/24 17:19 RDW 11.9 % (11.7-14.6) 11/20/24 17:19 Plt Count 261 10^3/uL (130-400) 11/20/24 17:19 MPV 10.3 fL (8.0-11.0) 11/20/24 17:19 ABO/Rh O Positive 11/20/24 17:19 Antibody Screen NEGATIVE 11/20/24 17:19 Vital Signs Reviewed: Yes Subjective Patient Reports: New Complaints Interval history since last seen: Chintan slept and awoke with diarrhea and nausea and vomiting. She reported that her daughter has had the GI bug. Results Hemoglobin/Hematocrit: Hgb 11.6 g/dL (11.2-15.7) 11/20/24 17:19 Hct 34.8 % (36.0-46.0) L 11/20/24 17:19 Abnormal Lab Findings: Abnormal Labs 11/20/24 17:19 WBC 11.86 H RBC 3.81 L Hct 34.8 L
[2024-11-21] MEDS: Loperamide 2 MG CAP 4 MG PO ×2 (07:00→20:30)
--- NOTE | 2024-11-21 09:12 | W.PM.OBNL1 ---
Date of service: 11/21/24 Time of Service: 09:12 Pelvic Exam Dilation: 6 Effacement (%): 100 station: +1 Cervix Position: mid Consistency: soft Vaginal Exam Presentation: Cephalic Contractions Monitor Mode: Palpation Contraction Frequency(min): every 5 min Contraction Duration(sec): 60 Intensity: Moderate Fetus A Monitor: Doppler Heart Rate Baseline: 140 Presentation: Cephalic Variability: Moderate (6-25 BPM) Categories: Category I FHR Rhythm: Regular Accelerations: 15 X 15 Decelerations: None Amniotic Membrane Status: Intact Assessment and Plan Assessment and plan (1) Spontaneous onset of labor: Status: Acute Assessment and plan: Discussed continuing to observe for signs of active labor vs. Going home to await active labor. Will re - examine cervix in 2-3 hours. (2) Nausea & vomiting: Status: Acute Assessment and plan: nausea improved. Will continue to assess. Objective Abnormal lab results 11/20/24 Range/Units 17:19 WBC 11.86 H (4.4-10.8) 10^3/uL RBC 3.81 L (3.93-5.22) 10^6/uL Hct 34.8 L (36.0-46.0) % Temp Pulse Resp BP 97.9 F 75 16 110/56 L 11/21/24 07:35 11/21/24 07:35 11/21/24 07:35 11/21/24 07:35 Laboratory Results WBC 11.86 10^3/uL (4.4-10.8) H 11/20/24 17:19 RBC 3.81 10^6/uL (3.93-5.22) L 11/20/24 17:19 Hgb 11.6 g/dL (11.2-15.7) 11/20/24 17:19 Hct 34.8 % (36.0-46.0) L 11/20/24 17:19 MCV 91 fL (80-95) 11/20/24 17:19 MCH 30.4 pg (27.0-33.0) 11/20/24 17:19 MCHC 33.3 % (32.0-36.0) 11/20/24 17:19 RDW 11.9 % (11.7-14.6) 11/20/24 17:19 Plt Count 261 10^3/uL (130-400) 11/20/24 17:19 MPV 10.3 fL (8.0-11.0) 11/20/24 17:19 ABO/Rh O Positive 11/20/24 17: Antibody Screen NEGATIVE 11/20/24 17:19 Subjective Patient Reports: No new Complaints Interval history since last seen: Chintan received a second dose of zofran 4 mg IV and LR fluid bolus of 500 cc. She also took immodium 4 mg PO with good effect. She is ambilating in her room and has been tolerating PO fluids. She took a shower and feels that her contractions are increasing in intensity. Results Hemoglobin/Hematocrit: Hgb 11.6 g/dL (11.2-15.7) 11/20/24 17: Hct 34.8 % (36.0-46.0) L 11/20/24 17:19 Abnormal Lab Findings: Abnormal Labs 11/20/24 17: WBC 11.86 H RBC 3.81 L Hct 34.8 L
[2024-11-21] MEDS: Ondansetron O.D.T. 4 MG TABEF (11:50)
[2024-11-21] MEDS: Oxytocin 10 UNITS/ML VIAL IM (12:28)
[2024-11-21] MEDS: Ibuprofen 600 MG TAB PO ×2 (13:00→18:45)
--- NOTE | 2024-11-21 14:07 | OBVDS_ITS ---
Date of service: 11/21/24 Time of Service: 14:07 OB Labor/ Delivery Information Baby A Delivery Delivery Method: Spontaneaous Presentation: Cephalic Vertex Position: Left Occipital Anterior Cord Description-Baby A: 3 Vessels Cord Description Comment: short cord Amniotic Fluid: Clear Estimated Blood Loss: 250 Delivery Outcome: Liveborn Infant Transferred: Remains with Mother Note: Chintan was feeling improvement in nausea. She did take a dose of ODT zofran 4 mg with good effect. There was spontaneous rupture of membranes for a large amount of clear fluid. FHTs 130s during first stage of labor. FHTs 130s in second stage. Shortly after, she progressed to full dilation and began pushing on her hands and knees. Second stage huddle was done. Spontaneous delivery of male infant delivered in MIO position. Baby was placed on mother's abdomen and dried and stimulated. Spontaneous cry. Cord was clamped and cut by the baby's father. The placenta delivered spontaneously and appears to by intact with a three vessel cord. Pitocin 10 units IM was administered before delivery of the placenta. The perineum was inspected and was intact. The baby did breastfeed. After delivery, Mother and baby and father of the baby were stable and bonding well in the delivery room and there were no complications. Providers Nurse Supervisor Receiving And Processing: Wendy Miranda Nurse: Angie Dhaliwal Nurse: Edel Gil Labor/Delivery Information Number of Babies in Womb: 1 Steroids Given: None Reason Steroids Not Administered: N/A Group Beta Strep: Negative Antibiotics Administered: No Rubella Status: Immune Blood Type: O+ Varicella Immunity: Immune Born En Route: No Maternal Complications: None Shoulder Dystocia: No Stages of Labor Onset of Labor Date: 11/20/24 Onset of Labor Time: 07:00 Complete Dilatation Date: 11/21/24 Complete Dilatation Time: 12:19 Labor - Stage 1 Duration: 29 hours and 19 minutes ROM Baby A: 11/21/24 ROM Baby A: 11:40 ROM Total Time- Baby A: [id number] Infant Delivery Date-Baby A: 11/21/24 Infant Delivery Time-Baby A: 12:24 Labor Stage 2 Duration: 5 minutes Placenta Delivery Date-Baby A: 11/21/24 Placenta Delivery Time-Baby A: 12:30 Labor-Stage 3 Duration: 6 minutes Total Length of Labor-Baby A: 29 hours and 24 minutes Placenta Status: Delivered Baby A Infant Gender: Male Gestational Status: Early Term (37-38.6 wks) Gestational Age in Weeks/Days: 37 Weeks and 1 Days Score-1 Minute Interval(Baby A) Heart Rate-1 minute: 100 BPM or Greater Respiratory Effort- 1 minute: Spontaneous/Strong Cry Muscle Tone-1 minute: Active Movement Reflex Response-1 minute: Prompt Response Color-1 minute: Pallor or Cyanosis Total Score-1 minute: 8 Score-5 Minute Interval(Baby A) Heart Rate- 5 minute: 100 BPM or Greater Respiratory Effort-5 minute: Spontaneous/Strong Cry Muscle Tone-5 minute: Active Movement Reflex Response-5 minute: Prompt Response Color-5 minute: Bluish Hands or Feet Total Score- 5 minute: 9
[2024-11-21 18:17] LABS: *AMPHETAMINES SCREEN URINE Negative (Negative); *BARBITURATES SCREEN URINE Negative (Negative); *BENZODIAZEPINES SCREEN URINE Negative (Negative); Cannabinoids THC Positive (Negative); Cocaine Screen,Urine Negative (Negative); METHADONE URINE SCREEN Negative (Negative); OPIATES URINE SCREEN Negative (Negative)
[2024-11-21 18:18] LABS: Tricyclic Antidepressants Negative (Negative)
[2024-11-22] MEDS: Ibuprofen 600 MG TAB PO ×3 (00:44→14:23)
[2024-11-22 08:00] VITALS: BP 94/66; PULSE 71; RESP 12; TEMP 36.7
[2024-11-22 15:15] VITALS: BP 98/59; PULSE 81; RESP 16
--- NOTE | 2024-11-22 15:27 | OBPPV_ITS ---
Date of service: 11/22/24 Time of Service: 15:28 Assessment and Plan Assessment and plan (1) Term of male : Status: Acute Assessment and plan: Caring for baby independently. Pain is managed well with oral analgesics. Voiding without difficulty. well. Karri Lee had circumcision today. A - stable mother and baby , Post day 1 P - Discharge to home tomorrow if baby is stable. Routine post instructions. [facility] Subjective Subjective Interval history: Chintan feels well. Karri Lee had a small pheumothorax which has resolved this morning. He is latching well at the breast and stable Patient comments: No complaints Patient's Mood: good baby status: Doing well [place] feeding status: Exclusively breast feeding Narrative: Chintan requested immodium last night for diarrhea but symptoms have resolved now. Exam Physical Exam Vital signs: Temp Pulse Resp BP Pulse Ox 98.1 F 71 12 94/66 L 97 11/22/24 08:00 11/22/24 08:00 11/22/24 08:00 11/22/24 08:00 11/21/24 20:30 Vital Signs Reviewed: Yes Constitutional Constitutional: no acute distress Respiratory Exam Respiratory Exam: Normal Cardiovascular Exam Cardiovascular Exam: Normal Fundal Exam Fundus: Below Umbilicus and Firm Exam External: Absent erythema or swelling Comments: intct perineum Extremities Exam Extremity Exam: Normal Skin Exam Skin Exam: Normal Psychiatric Exam Psychiatric Exam: Normal Results Hemoglobin/Hematocrit: Hgb 11.6 g/dL (11.2-15.7) 11/20/24 17:19 Hct 34.8 % (36.0-46.0) L 11/20/24 17:19 Abnormal Lab Findings: Abnormal Labs 11/20/24 11/21/24 17:19 16:00 WBC 11.86 H RBC 3.81 L Hct 34.8 L Ur THC Screen Positive A
[2024-11-22 20:02] VITALS: BP 114/79; PULSE 61; RESP 16; TEMP 36.8; O2SAT 98
[2024-11-23] MEDS: Ibuprofen 600 MG TAB PO ×2 (03:41→09:04)
[2024-11-23 09:00] VITALS: BP 105/67; PULSE 72; RESP 12; TEMP 36.8
--- NOTE | 2024-11-23 09:38 | W.PM.OBPNV1 ---
Date of service: 11/23/24 Time of Service: 09:38 Assessment and Plan Assessment and plan (1) care and examination of lactating mother: Status: Acute Assessment and plan: Caring for baby independently. Pain is managed well with oral analgesics. Voiding without difficulty. well. A - stable mother and baby , day 2 P - Discharge to home. Routine instructions. [facility] for 2/6wk PP visit, BCM undecided (2) Term of male : Status: Acute Subjective Subjective Interval history: Slept overnight. Jesus nursing well, latch is comfortable. Bleeding lightening, no clots. Pain with , ibuprofen helps. +BM and voiding. Patient's Mood: congruent [place] baby status: Nursing well and Strong Bonding Observed [place] feeding status: Exclusively breast feeding Exam Physical Exam Vital signs: Temp Pulse Resp BP Pulse Ox 98.2 F 61 16 114/79 98 11/22/24 20:02 11/22/24 20:02 11/22/24 20:02 11/22/24 20:02 11/22/24 20:02 Vital Signs Reviewed: Yes Constitutional Constitutional: no acute distress Abdominal Exam Abdomen: Diastasis Fundal Exam Fundus: Below Umbilicus and Firm Exam Perineum: Intact Extremities Exam Extremity Exam: Normal Skin Exam Skin Exam: Normal Neurological Exam Neurological Exam: Normal Psychiatric Exam Psychiatric Exam: Normal Results Hemoglobin/Hematocrit: Hgb 11.6 g/dL (11.2-15.7) 11/20/24 17:19 Hct 34.8 % (36.0-46.0) L 11/20/24 17:19 Abnormal Lab Findings: Abnormal Labs 11/20/24 11/21/24 17:19 16:00 WBC 11.86 H RBC 3.81 L Hct 34.8 L Ur THC Screen Positive A
--- NOTE | 2024-11-23 09:43 | DSE_ITS ---
Date of service: 11/23/24 Time of Service: 09:43 DS: Diagnosis Discharge Diagnosis (1) care and examination of lactating mother: Status: Acute (2) Term of male : Status: Acute Discharge Plan Disposition Patient Disposition: Home Condition: Good Discharge Details Reason For Visit: labor Admit Date/Time: 11/20/24 16:59 Admit Provider: Wendy Miranda Attending Provider: Wendy Miranda Primary Care Provider: Alberto Estrada Home Meds and New Rx's Prescriptions: No Action ondansetron HCl 8 mg tablet 8 mg PO Q8H PRN (Reason: nausea and vomiting) 14 Days Qty: 20 2RF Classic 28 mg iron- 800 mcg tablet 1 tab PO DAILY (DME) breast pump Device See Rx Instructions .ROUTE .MEDSUPPLY Qty: 1 0RF Rx Instructions: As directed levalbuterol tartrate [Xopenex HFA] 45 mcg/actuation HFA aerosol inhaler 2 puff Inhalation Q4H PRN Qty: 1 6RF Unisom (doxylamine) 25 mg tablet 25 mg PO QHS PRN (Reason: sleep) Qty: 14 1RF pantoprazole [Protonix] 40 mg tablet,delayed release (DR/EC) 40 mg PO DAILY Qty: 30 4RF ibuprofen 600 mg tablet 600 mg PO Q6H PRN (Reason: pain) 30 Days Qty: 30 6RF Discharge Instructions Stand Alone Forms: BC Instructions, BC Post Vaginal Deliver Activity:: Activity as Tolerated Equipment/Supplies:: No Equipment Needed Diet:: Normal Diet Discharge Orders Discharge Orders: Discharge Order (Routine); Ordered 11/23/24 Ordered By: Linda Lewis OB:DS Summary Summary Vaginal Delivery Method: Spontaneaous Episiotomy Description: None Laceration Description: None Laceration Extension: N/A Contraception Discussed Contraception Discussed: Yes Contraceptive Plan: Undecided, [place] Gender-Baby A: Male weight: 6 lb 11.233 oz Status at Discharge Functional status at discharge: independent ambulation Overall status at discharge: patient is back to baseline Mental Status: mental status grossly normal Speech and Movement: speech and movement normal Mood: congruent mood Affect: normal affect Quality:SDOH Health Related Social Needs: No Data to Display Exam Physical Exam Vital signs: Temp Pulse Resp BP Pulse Ox 98.2 F 61 16 114/79 98 11/22/24 20:02 11/22/24 20:02 11/22/24 20:02 11/22/24 20:02 11/22/24 20:02 Constitutional Constitutional: no acute distress Abdominal Exam Abdomen: Diastasis Fundal Exam Fundus: Below Umbilicus and Firm Exam Perineum: Intact Extremities Exam Extremity Exam: Normal Skin Exam Skin Exam: Normal Neurological Exam Neurological Exam: Normal Psychiatric Exam Psychiatric Exam: Normal PFSH All Active Problems (Updated 11/23/24 @ 09:42 by Linda Lewis CNM) care and examination of lactating mother (Acute) Term of male (Acute) Medical History (Updated 11/23/24 @ 09:42 by Linda Lewis CNM) Anxiety Eczema (07/19/14) Acne (05/31/12) Migraine with aura (05/31/12) Asthma, exercise induced (05/31/12) Marijuana smoker Ovarian cyst Vaginal bleeding affecting early Otalgia Epigastric pain Nausea Positive GUY (antinuclear antibody) (02/24/16) screening labs for lupus negative Depressive disorder Arthralgia ADHD (attention deficit hyperactivity disorder) took meds only while in school & college Surgical History release of bowel obstructing celiac artery 05/19 Family History (Updated 05/22/24 @ 13:54 by Wendy Miranda CNM) Mother Lupus Depression Anxiety Brother Anxiety Social History Smoking/Tobacco Use Status: Never Smoking risk assessment performed?: Yes Alcohol Intake: former Details: d/c'd w/ knowledge of . Drug use: Current Sobriety Substance use type: marijuana Details: mj qd one hit q day. Housing: house Seatbelt use: always Do you feel safe at home: Yes Do you feel safe in your relationship?: Yes Female Reproductive History Menstrual control method: progesterone injection History History 2 Para 1 Hx # Term Pregnancies 1 Multiple births 0 Hx # Pregnancies 0 Ectopic pregnancies 0 AB induced 0 Hx Number of Living Children 1 AB spontaneous 0 Past Pregnancies Del. Date GA/Weeks # Preg Succ Route Wgt Sex Labor Lgth Anesth esia Location [facility] 11/06/19 40 No Yes vaginal 7 lb 3 oz Female 3rd stage was minutes. Patient delivered 20 min. after arrival Nagi Miranda CNM Delivery Date: 11/06/19 Last Updated by: BHASKAR Pascal DS: Data Vitals/I&O Vitals and I&O: Vital Signs Temperature 98.2 F 11/22/24 20:02 Temperature 97.8 F 11/20/24 18:41 Temperature Source Tympanic 11/22/24 20:02 Pulse 61 11/22/24 20:02 Pulse 89 11/20/24 18:41 Pulse Rhythm Regular 11/22/24 20:02 Respiratory Rate 16 11/22/24 20:02 Blood Pressure 114/79 11/22/24 20:02 Blood Pressure 108/62 11/20/24 18:41 Blood Pressure Mean 90 11/22/24 20:02 Pulse Oximetry 98 11/22/24 20:02 Oxygen Delivery Method Room Air 11/20/24 17:05 Oxygen Flow Rate 0 11/20/24 17:05 Pain Level 2 11/23/24 09:04 Comment Pt reports DONOVAN, ibuprophen given 11/22/24 20:02 Intake & Output 11/22/24 11/22/24 11/23/24 11:59 23:59 11:59 Other: Urine Color Yellow
[2024-11-23 11:39] LABS: Fentanyl Scr w/Rfx Confirm Negative ng/mL (<1)
== END 2024-11-23 10:00 | disposition home or self-care (01) | DRG 806 ==
LOC: BCD 17:12 → OBS 17:12
PROVIDERS: Admitting Provider Advanced Practice Midwife; PCP Nurse Practitioner Family; Visit Provider Advanced Practice Midwife
DX: O69.3XX0 Labor and delivery complicated by short cord, not applicable or unspecified (principal); O99.324 Drug use complicating childbirth; Z37.0 Single live birth; O99.354 Diseases of the nervous system complicating childbirth; R11.2 Nausea with vomiting, unspecified; R19.7 Diarrhea, unspecified; Z3A.37 37 weeks gestation of pregnancy; F90.9 Attention-deficit hyperactivity disorder, unspecified type; O99.62 Diseases of the digestive system complicating childbirth; F32.A Depression, unspecified; M54.32 Sciatica, left side; O22.03 Varicose veins of lower extremity in pregnancy, third trimester; O99.344 Other mental disorders complicating childbirth; F12.90 Cannabis use, unspecified, uncomplicated; F41.8 Other specified anxiety disorders; O34.83 Maternal care for other abnormalities of pelvic organs, third trimester; N83.202 Unspecified ovarian cyst, left side; N83.201 Unspecified ovarian cyst, right side; O99.52 Diseases of the respiratory system complicating childbirth; G43.109 Migraine with aura, not intractable, without status migrainosus; J45.990 Exercise induced bronchospasm
CPT/HCPCS: 36415; 80307; 85027; 86850; 86900; 86901; 59025; J2405; J2590

== ENCOUNTER 2025-08-12 10:32 | Outpatient (CLI) | payer MEDICAID, SELFPAY ==
[2025-08-12 11:02] LABS: TSH (W/Ref FT4) 0.56 uIU/mL (0.55-4.78)
[2025-08-12 18:17] LABS: FSH 1.4 mIU/mL (See Note)
[2025-08-19 19:28] LABS: Testosterone, Free 2.9 pg/mL (0.1-6.4)
== END 2025-08-12 10:33 | disposition home or self-care (01) ==
LOC: LBO 10:32
PROVIDERS: PCP Nurse Practitioner Family; Visit Provider Nurse Practitioner Women's Health
DX: R23.2 Flushing (principal)
CPT/HCPCS: 36415; 84402; 84403; 83001; 84443

== ENCOUNTER 2025-08-20 10:09 | Outpatient (REF) | payer MEDICAID, SELFPAY | END 2025-08-20 10:10 | disposition home or self-care (01) | LOC: LBN 10:09 | PROVIDERS: PCP Nurse Practitioner Family; Visit Provider Nurse Practitioner Family | DX: J02.9 Acute pharyngitis, unspecified (principal) | CPT/HCPCS: 87070 ==